=== PATIENT | female | born 1955 | race Caucasian/White ===

== ENCOUNTER → 2024-01-15 15:21 | Outpatient (CLI) | payer MEDICARE, BC, SELFPAY ==
[2024-01-15 19:13] LABS: COVID-19 CEPHEID 4-PLEX PCR POSITIVE (Negative); Influenza A - CEPHEID Flu A NEGATIVE (NEGATIVE); Influenza B - CEPHEID Flu B NEGATIVE (NEGATIVE); Respiratory Syncytial Virus Negative (Negative)
== END ==
PROVIDERS: Visit Provider Physician Assistant Medical
CPT/HCPCS: 0241U